=== PATIENT | male | born 1985 | race American Indian/Alaskan Native ===

== ENCOUNTER 2017-05-13 15:07 | Emergency (ER) | payer SELFPAY ==
[2017-05-13 16:45] VITALS: BP 120/92
[2017-05-13] MEDS ORDERED: BOOSTRIX IM ONE (17:12)
[2017-05-13] MEDS ORDERED: KEFLEX PO ONE ×2 (17:13→18:00)
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
[2017-05-13] MEDS ORDERED: PERCOCET 5/325 PO ONE (17:22)
[2017-05-13] MEDS ORDERED: NACL 0.9% IR ONE (18:00)
[2017-05-13] MEDS ORDERED: THERMAZENE 50 GRAM TP ONE (18:00)
== END 2017-05-13 18:20 | disposition home or self-care (01) ==
LOC: ED 15:07
DX: T23.201A Burn of second degree of right hand, unspecified site, initial encounter (principal); T31.0 Burns involving less than 10% of body surface; Z91.013 Allergy to seafood; X13.1XXA Other contact with steam and other hot vapors, initial encounter; Y93.89 Activity, other specified; Y92.89 Other specified places as the place of occurrence of the external cause; Y99.8 Other external cause status
CPT/HCPCS: 90471; 90715